=== PATIENT | female | born 1955 | race African-American/Black ===

== ENCOUNTER 2018-10-18 10:01 | Emergency (ER) | payer MEDICAID ==
[~2018-10-18] VITALS: Ht 162.6 cm; Wt 86.2 kg
[2018-10-18 10:03] VITALS: BP 162/89
[2018-10-18] MEDS ORDERED: UNOBMED (10:07)
[2018-10-18] MEDS ORDERED: LIDOCAINE700 M1 TP (11:17)
[2018-10-18] MEDS ORDERED: ROBAXIN-750750 MG PO (11:17)
[2018-10-18] MEDS ORDERED: NORCO 5-325 TA1 EACH ORAL (11:17)
--- NOTE | 2018-10-18 11:18 | Emergency Room Report ---
History of Present Illness General Chief Complaint: Lower Back Pain or Injury Source: Patient Present Illness HPI 63-year-old female presents with lower back pain x1 month, she endorses left lower back pain that radiates down her left leg, no fevers no chills, no chest pain, no focal weakness no bowel bladder retention/incontinence, patient is able to ambulate without difficulty, patient is requesting a short-term course of pain medication to help with alleviation. Presents for evaluation Allergies: Coded Allergies: CODEINE (Verified Allergy, Unknown, 10/18/18) PENICILLINS (Verified Allergy, Unknown, 10/18/18) Patient History Past Medical History: see triage record Last Menstrual Period: menopause Reviewed Nursing Documentation: PMH: Agreed; PSxH: Agreed Nursing Documentation-PMH Past Medical History: No History, Except For Hx Hypertension: Yes Review of Systems All Other Systems: negative except mentioned in HPI Physical Exam Vital Signs Date Time Temp Pulse Resp B/P (MAP) Pulse Ox O2 Delivery O2 Flow Rate FiO2 10/18/18 10:03 98.1 60 18 162/89 98 Room Air Sp02 EP Interpretation: reviewed, normal General Appearance: well appearing, no apparent distress, alert Head: normocephalic, atraumatic Eyes: bilateral eye PERRL, bilateral eye EOMI ENT: uvula midline, moist mucus membranes Neck: supple, thyroid normal, supple/symm/no masses Respiratory: lungs clear, no respiratory distress, no retraction, no accessory muscle use Cardiovascular #1: normal peripheral pulses, regular rate, rhythm, no edema, no gallop, no murmur Gastrointestinal: non tender, soft, no guarding, no rebound Musculoskeletal: normal range of motion, other - 5 out of 5 strength plantar dorsiflexion, knee flexion extension, gait intact, tenderness to palpation left lower back, no midline tenderness. Neurologic: alert, oriented x3 Psychiatric: mood/affect normal Skin: no rash, warm/dry Medical Decision Making Diagnostic Impression: Primary Impression: Low back pain ER Course The patient presents with acute onset of back pain after 1month. Clinically this patient can be ruled out for serious pathology given there is a completely normal neurological exam, no history of IV drug use, and no history of bowel or bladder incontinence, no perianal numbness/tingling, no constipation or urinary retention. Once the patient's pain was adequately controlled, the patient was able to ambulate and be discharged in stable condition with anticipatory guidance provided. Patient with no red flags of bp. Patient most likely with sciatica, patient counseled that she can be provided with a short-term course of pain medication, a cures report was run, no evidence of recent opioid prescription area patient counseled that we cannot give her an opioid today, however she may receive a short course Last Vital Signs Date Time Temp Pulse Resp B/P (MAP) Pulse Ox O2 Delivery O2 Flow Rate FiO2 10/18/18 10:03 98.1 60 18 162/89 (113) 98 Room Air Disposition: HOME, SELF-CARE Condition: Stable Scripts Lidocaine (Lidocaine) 1 Each Adh..patch 700 MG TP Q12HR, #10 PATCH Prov: Jean Perez M.D. 10/18/18 Methocarbamol* (ROBAXIN-750*) 750 Mg Tablet 750 MG PO TID, #21 TAB 0 Refills Prov: Jean Perez M.D. 10/18/18 Hydrocodone Bit/Acetaminophen 5-325* (NORCO 5-325*) 1 Each Tablet 1 TAB ORAL Q6H PRN for For Pain, #12 TAB 0 Refills Prov: Jean Perez M.D. 10/18/18 Referrals: NON PHYSICIAN (PCP) [facility] Patient Instructions: Back Pain, Adult, Lumbosacral Strain, Sciatica Additional Instructions: The patient was provided with discharge instructions, notified to follow-up with a primary care doctor and or specialist in the next 24-48 hours, and to return to the ED if they have worsening of their symptoms. Please note that this report is being documented using [employer] technology. This can lead to erroneous entry secondary to incorrect interpretation by the dictating instrument. Please take one tablet of norco every 6 hours, as needed for SEVERE pain. Please do not take this medication unless you absolutely need it, it is very addictive. Please do not drive, operate heavy machinery or make important decisions while on this medication, it can cloud your judgement. Jean Perez M.D. Oct 18, 2018 11:18
[2018-10-18 11:22] VITALS: BP 154/80
--- NOTE | 2018-10-18 11:22 | NUR ---
ER DISCHARGE NOTE: Pt was seen due to low back pain. Patient is cleared to be discharged per ERMD, pt is aox4, on room air, with stable vital signs. pt was given dc and prescription instructions, pt was able to verbalize understanding, pt id band removed without complications. pt is able to ambulate with steady gait. pt took all belongings.
== END 2018-10-18 11:22 | disposition home or self-care (01) ==
LOC: EMR 10:42
DX: M54.5 Low back pain (principal); I10 Essential (primary) hypertension; Z88.5 Allergy status to narcotic agent; Z88.0 Allergy status to penicillin
CPT/HCPCS: 99283